=== PATIENT | male | born 1960 | race Caucasian/White ===

== ENCOUNTER 2017-05-17 12:54 | Emergency (ER) | payer MEDICAID ==
[~2017-05-17] VITALS: Ht 170.2 cm; Wt 106.8 kg
[2017-05-17] MEDS ORDERED: methylPREDNISolone sod succ 125mg/2ml vial IV ONE (13:05)
[2017-05-17] MEDS ORDERED: ipratropium/albuterol 3ml nebule NEB ONE ×2 (13:05→15:45)
[2017-05-17 13:22] LABS: BASOPHILS % (AUTO) 0.2 % (0-1); EOSINOPHILS # (AUTO) 0.1 X10'3 (0-0.9); EOSINOPHILS % (AUTO) 0.9 % (0-6); LYMPHOCYTES # (AUTO) 0.9 X10'3 (1.1-4.8); LYMPHOCYTES % (AUTO) 8.3 % (21-51); MEAN CORPUSCULAR HGB CONC 32.8 % (33.0-36.5); MEAN CORPUSCULAR VOLUME 91.5 FL (78-98); MEAN PLATELET VOLUME 7.5 FL (7.4-10.4); MONOCYTES # (AUTO) 0.3 X10'3 (0-0.9); MONOCYTES % (AUTO) 2.5 % (2-12); NEUTROPHILS # (AUTO) 9.9 X10'3 (1.8-7.7); NEUTROPHILS % (AUTO) 88.1 % (42-75); PLATELET COUNT 391 X10'3 (140-440); RED CELL DISTRIBUTION WIDTH 14.7 % (11.5-14.5); WHITE BLOOD COUNT 11.2 X10'3 (4.5-11.0)
[2017-05-17 13:27] LABS: HEMOGLOBIN 20.1 g/dl (14.0-17.9)
[2017-05-17 13:28] LABS: HEMATOCRIT 61.3 % (42.0-52.0)
[2017-05-17 13:44] LABS: ALANINE AMINOTRANSFERASE 65 U/L (12-78); ALBUMIN 3.6 G/DL (3.4-5.0); ALBUMIN/GLOBULIN RATIO 0.8 (1.1-1.5); ALKALINE PHOSPHATASE 55 IU/L (46-116); ANION GAP 7 (8-16); ASPARTATE AMINO TRANSFERASE 56 U/L (10-37); BILIRUBIN,TOTAL 0.9 MG/DL (0.1-1.0); BLOOD UREA NITROGEN 31 MG/DL (7-18); BUN/CREATININE RATIO 37.8 (5.4-32.0); CHLORIDE 100 MMOL/L (99-107); CREATININE 0.82 MG/DL (0.60-1.10); GLUCOSE 140 MG/DL (70-104); MAGNESIUM 1.7 MG/DL (1.5-2.4); POTASSIUM 4.2 MMOL/L (3.5-5.1); SODIUM 139 MMOL/L (135-145); TOTAL CARBON DIOXIDE 32.1 MMOL/L (24-32); TOTAL PROTEIN 7.9 G/DL (6.4-8.2); eGFR > 90 ML/MIN
[2017-05-17] MEDS ORDERED: iohexol 350MG/ML 100ml bottle IV ONE (14:17)
[2017-05-17 16:31] VITALS: BP 131/82
== END 2017-05-17 16:33 | disposition home or self-care (01) ==
LOC: ER 12:54
DX: J44.1 Chronic obstructive pulmonary disease with (acute) exacerbation (principal); D75.1 Secondary polycythemia; F17.200 Nicotine dependence, unspecified, uncomplicated; E11.9 Type 2 diabetes mellitus without complications
CPT/HCPCS: 36415; 71045; 71275; 80053; 83735; 83880; 84484; 85025; 93005; 94640; 94760; 96374; 99285; J2930; J7030; Q9967

== ENCOUNTER 2019-07-16 20:47 | Inpatient (IN) | payer MEDICAID ==
[~2019-07-16] VITALS: Ht 167.6 cm; Wt 100.0 kg
[2019-07-16] MEDS ORDERED: CefTRIAXone 2gm/D5W 50ml 50 ML IV ONE (20:55)
[2019-07-16] MEDS ORDERED: normal saline 1000ML IV soln IV ONE (20:55)
[2019-07-16 21:10] LABS: BASOPHILS % (AUTO) 0.3 % (0-1); EOSINOPHILS # (AUTO) 0.1 X10'3 (0-0.9); EOSINOPHILS % (AUTO) 0.7 % (0-6); HEMOGLOBIN 8.9 g/dl (14.0-17.9); LYMPHOCYTES # (AUTO) 1.4 X10'3 (1.1-4.8); LYMPHOCYTES % (AUTO) 10.3 % (21-51); MEAN CORPUSCULAR HEMOGLOBIN 29.7 PG (27.0-31.0); MEAN CORPUSCULAR HGB CONC 32.9 g/dL (33.0-36.5); MEAN CORPUSCULAR VOLUME 90.3 FL (78-98); MEAN PLATELET VOLUME 7.8 FL (7.4-10.4); MONOCYTES # (AUTO) 0.7 X10'3 (0-0.9); MONOCYTES % (AUTO) 5.5 % (2-12); NEUTROPHILS # (AUTO) 11.1 X10'3 (1.8-7.7); NEUTROPHILS % (AUTO) 83.2 % (42-75); PLATELET COUNT 355 X10'3 (140-440); RED BLOOD COUNT 2.98 X10'6 (4.70-6.10); RED CELL DISTRIBUTION WIDTH 14.3 % (11.5-14.5); WHITE BLOOD COUNT 13.4 X10'3 (4.5-11.0)
[2019-07-16 21:24] LABS: PARTIAL THROMBOPLASTIN TIME 28 SECONDS (22-32)
[2019-07-16 21:34] LABS: LACTIC SEPSIS 1.3 MMOL/L (0.4-2.0)
[2019-07-16 21:39] LABS: ALANINE AMINOTRANSFERASE 10 U/L (12-78); ALBUMIN 2.8 G/DL (3.4-5.0); ALBUMIN/GLOBULIN RATIO 1.1 (1.1-1.5); ALKALINE PHOSPHATASE 42 IU/L (46-116); ANION GAP 5 (8-16); ASPARTATE AMINO TRANSFERASE 11 U/L (10-37); BILIRUBIN,TOTAL 0.2 MG/DL (0.1-1.0); BLOOD UREA NITROGEN 119 MG/DL (7-18); BUN/CREATININE RATIO 13.8 (5.4-32.0); CALCIUM 7.2 MG/DL (8.5-10.1); CHLORIDE 102 MMOL/L (99-107); CREATININE 8.64 MG/DL (0.60-1.10); GLUCOSE 105 MG/DL (70-104); POTASSIUM 4.3 MMOL/L (3.5-5.1); SODIUM 142 MMOL/L (135-145); TOTAL CARBON DIOXIDE 35.5 MMOL/L (24-32); TOTAL PROTEIN 5.4 G/DL (6.4-8.2); eGFR 6 ML/MIN
[2019-07-16] MEDS ORDERED: normal saline 1000ML IV soln IVB ONE (21:45)
[2019-07-16 21:46] LABS: ETHANOL < 0.010 GM/DL (0.0-0.010); LIPASE 81 U/L (73-393); MAGNESIUM 1.7 MG/DL (1.5-2.4)
[2019-07-16] MEDS ORDERED: TRAM50TA2 PO (22:13)
[2019-07-16] MEDS ORDERED: CLON-529 PO (22:13)
[2019-07-16] MEDS ORDERED: LISI-600 PO (22:13)
[2019-07-16] MEDS ORDERED: BACL10TA2 PO (22:13)
[2019-07-16] MEDS ORDERED: FENO54TA PO (22:13)
[2019-07-16] MEDS ORDERED: METF-950 PO (22:13)
[2019-07-16] MEDS ORDERED: SIMV-42 PO (22:13)
[2019-07-16] MEDS ORDERED: GABA300C PO (22:13)
--- NOTE | 2019-07-16 22:13 | NUR ---
Spoke to pt's daughter Theresa [phone] as requested by pt and notified her of pt's admittance to the hospital. Med rec was also obtained from daughter.
[2019-07-16 22:15] LABS: CLARITY,URINE SLIGHTLY CLOUDY (Clear); COLOR,URINE YELLOW (Yellow); GLUCOSE, URINE NEGATIVE (Neg); KETONES,URINE TRACE mg/dl (Neg); LEUKOCYTE ESTERASE ,URINE NEGATIVE (Neg); NITRITES, URINE NEGATIVE (Neg); OCCULT BLOOD,URINE LARGE (Neg); PH,URINE 5.5 (4.8-8.0); PROTEIN,URINE 100 mg/dl (Neg); UROBILINOGEN,URINE 0.2 E.U/dL (0.2-1.0)
[2019-07-16 22:19] LABS: UA COLLECTION TYPE STRAIGHT CATH
[2019-07-16 22:20] LABS: BACTERIA,URINE FEW /HPF (Neg); MUCUS STRANDS FEW /LPF (Neg); RBC,URINE 20-50 /HPF (0-2); SQUAMOUS EPITHELIAL CELL,UR FEW /LPF (FEW); WBC,URINE 0-4 /HPF (0-4)
[2019-07-16 22:28] LABS: URINE AMPHETAMINE SCREEN NEGATIVE (Neg); URINE BARBITUATE SCREEN NEGATIVE (Neg); URINE BENZODIAZEPINES SCREEN NEGATIVE (Neg); URINE CANNABINOID SCREEN NEGATIVE (Neg); URINE COCAINE SCREEN NEGATIVE (Neg); URINE METHADONE SCREEN NEGATIVE (Neg); URINE OPIATE SCREEN NEGATIVE (Neg); URINE PHENCYCLIDINE SCREEN NEGATIVE (Neg)
[2019-07-16] MEDS ORDERED: baclofen 10mg tablet PO PRN (22:30)
[2019-07-16] MEDS ORDERED: normal saline 1000ml 1,000 ML IV SCH (22:31)
[2019-07-16] MEDS ORDERED: ipratropium/albuterol 3ml nebule NEB PRN (22:35)
[2019-07-16] MEDS ORDERED: magnesium 4gm in 100ml NS 100 ML IV PRN (22:35)
[2019-07-16] MEDS ORDERED: dextrose ORAL solution 15 GM/59 ML bottle PO PRN ×2 (22:35)
[2019-07-16] MEDS ORDERED: insulin Lispro (HumaLOG) vial - multi-dose SQ SCH (22:35)
[2019-07-16] MEDS ORDERED: acetaminophen 650mg rectal suppository RC PRN (22:35)
[2019-07-16] MEDS ORDERED: MESSAGE TO PHARMACY PO ONE (22:35)
[2019-07-16] MEDS ORDERED: potassium CL 10mEq/100ml bag 100 ML IV PRN ×2 (22:35)
[2019-07-16] MEDS ORDERED: glucagon, human recombinant 1mg kit SUBCUT PRN (22:35)
[2019-07-16] MEDS ORDERED: dextrose 50%-water 50ml dispensing syringe IV PRN ×2 (22:35)
[2019-07-16] MEDS ORDERED: potassium Cl 20 mEq SR tablet PO PRN ×2 (22:35)
[2019-07-16] MEDS ORDERED: magnesium 2GM in 50ml NS 50 ML IV PRN (22:35)
[2019-07-16] MEDS ORDERED: docusate sod 100mg capsule PO PRN (22:35)
[2019-07-17] VITALS (7 sets, daily range): BP systolic 80–110; BP diastolic 51–63
[2019-07-17] MEDS: pantoprazole 40MG/NS 100ML BAG 100 ML IV SCH ×5 (01:12→21:16)
[2019-07-17] MEDS: Melatonin 3mg tablet PO SCH ×2 (02:05→21:15)
--- NOTE | 2019-07-17 02:55 | NUR ---
Pt BP @ 80/41 - talked to Dr. Rios - drawing labs now to obtain Hgb and creatinine to determine patient need for blood vs fluid. Will continue to monitor. Pt is axo1-[address] Rios discussed w/ patient risks and benefits of blood transfusion.
[2019-07-17 03:44] LABS: HEMOGLOBIN A1C 6.7 % (4.5-6.2)
[2019-07-17 03:54] LABS: ALBUMIN 2.8 G/DL (3.4-5.0); ANION GAP 11 (8-16); BLOOD UREA NITROGEN 101 MG/DL (7-18); BUN/CREATININE RATIO 16.7 (5.4-32.0); CALCIUM 6.9 MG/DL (8.5-10.1); CHLORIDE 108 MMOL/L (99-107); CREATININE 6.05 MG/DL (0.60-1.10); GLUCOSE 89 MG/DL (70-104); MAGNESIUM 1.6 MG/DL (1.5-2.4); POTASSIUM 3.8 MMOL/L (3.5-5.1); SODIUM 146 MMOL/L (135-145); TOTAL CARBON DIOXIDE 27.5 MMOL/L (24-32); eGFR 10 ML/MIN
[2019-07-17 04:16] LABS: BASOPHILS % (AUTO) 0.4 % (0-1); EOSINOPHILS # (AUTO) 0.1 X10'3 (0-0.9); EOSINOPHILS % (AUTO) 0.6 % (0-6); HEMATOCRIT 23.7 % (42.0-52.0); HEMOGLOBIN 7.8 g/dl (14.0-17.9); LYMPHOCYTES # (AUTO) 1.4 X10'3 (1.1-4.8); LYMPHOCYTES % (AUTO) 12.8 % (21-51); MEAN CORPUSCULAR HEMOGLOBIN 29.8 PG (27.0-31.0); MEAN CORPUSCULAR HGB CONC 33.1 g/dL (33.0-36.5); MEAN CORPUSCULAR VOLUME 89.9 FL (78-98); MEAN PLATELET VOLUME 7.7 FL (7.4-10.4); MONOCYTES # (AUTO) 0.8 X10'3 (0-0.9); NEUTROPHILS # (AUTO) 8.7 X10'3 (1.8-7.7); NEUTROPHILS % (AUTO) 79.2 % (42-75); PLATELET COUNT 338 X10'3 (140-440); RED BLOOD COUNT 2.63 X10'6 (4.70-6.10); RED CELL DISTRIBUTION WIDTH 14.3 % (11.5-14.5)
[2019-07-17] MEDS: dextrose 5%-water 1,000 ML IV SCH ×5 (05:03→20:35)
[2019-07-17 06:19] LABS: OCCULT BLOOD STOOL POSITIVE (Neg)
--- NOTE | 2019-07-17 06:30 | NUR ---
Patient in room PCU 3014. I have received report from KAT LEON and had the opportunity to ask questions and assume patient care.
[2019-07-17] MEDS: diatr meglu/diatrizoate 30ml oral sol.-(3 dose) bottle PO SCH ×3 (07:11→14:01)
[2019-07-17] MEDS: K and/or MAG REPLACEMENT MC SCH ×2 (08:00→18:51)
[2019-07-17] MEDS: nicotine 14mg patch - 24hr TD SCH (08:34)
[2019-07-17 10:52] LABS: CLARITY,URINE CLEAR (Clear); COLOR,URINE YELLOW (Yellow); GLUCOSE, URINE 250 mg/dl (Neg); KETONES,URINE NEGATIVE (Neg); LEUKOCYTE ESTERASE ,URINE NEGATIVE (Neg); NITRITES, URINE NEGATIVE (Neg); OCCULT BLOOD,URINE TRACE-LYSED (Neg); PROTEIN,URINE NEGATIVE (Neg); UROBILINOGEN,URINE 0.2 E.U/dL (0.2-1.0)
[2019-07-17 10:55] LABS: TOTAL PROTEIN,URINE RANDOM 20.1 MG/DL
--- NOTE | 2019-07-17 10:59 | NUR ---
CALL FROM RAINE APONTE, SAYS "GIVE SECOND DOSE OF GASTROVIEW NOW, THIRD DOSE FINANCIAL ADMINISTRATIVE ASSISTANT".
[2019-07-17 11:14] LABS: UA COLLECTION TYPE FOLEY CATH
[2019-07-17 11:18] LABS: BACTERIA,URINE NONE SEEN /HPF (Neg); RBC,URINE 0-2 /HPF (0-2); SQUAMOUS EPITHELIAL CELL,UR NONE SEEN /LPF (FEW); WBC,URINE 0-4 /HPF (0-4)
[2019-07-17 11:37] LABS: UA EOSINOPHILS NO EOS /HPF
[2019-07-17 12:34] LABS: ALANINE AMINOTRANSFERASE 7 U/L (12-78); ALBUMIN 2.7 G/DL (3.4-5.0); ALKALINE PHOSPHATASE 41 IU/L (46-116); ANION GAP 8 (8-16); ASPARTATE AMINO TRANSFERASE 12 U/L (10-37); BILIRUBIN,TOTAL 0.1 MG/DL (0.1-1.0); BLOOD UREA NITROGEN 69 MG/DL (7-18); BUN/CREATININE RATIO 18.3 (5.4-32.0); CALCIUM 7.4 MG/DL (8.5-10.1); CHLORIDE 110 MMOL/L (99-107); CREATININE 3.77 MG/DL (0.60-1.10); GLUCOSE 161 MG/DL (70-104); POTASSIUM 3.9 MMOL/L (3.5-5.1); SODIUM 148 MMOL/L (135-145); TOTAL CARBON DIOXIDE 30.5 MMOL/L (24-32); TOTAL PROTEIN 5.3 G/DL (6.4-8.2); eGFR 17 ML/MIN
--- NOTE | 2019-07-17 17:37 | NUR ---
PAGER ID: [phone] MESSAGE: DR. POWERS, 3849W/YIFAN [place] REPORT WAS HE HAD DECKER CATH PER PROTOCOL TO MONITOR CRITICALLY ILL PT. I DO NOT FIND ANY ORDERS. WAS INSERTED LAST NOC @2200. PLEASE ADDRESS. MIRIAM PINEDA [id number].
--- NOTE | 2019-07-17 18:33 | NUR ---
Problems reprioritized. Patient report given, questions answered & plan of care reviewed with KAT CAT.
--- NOTE | 2019-07-17 18:43 | NUR ---
Patient in room PCU 3014. I have received report from Charanjit STEPHENS and had the opportunity to ask questions and assume patient care.
[2019-07-17] MEDS: insulin glargine (Lantus) pen - multi-dose SQ SCH (21:00)
--- NOTE | 2019-07-17 21:54 | NUR ---
Unable to DART pt, pt is a poor historian and confused.
[2019-07-18] VITALS (21 sets, daily range): BP systolic 79–113; BP diastolic 46–80
[2019-07-18] MEDS: dextrose 5%-water 1,000 ML IV SCH ×3 (00:35→08:29)
[2019-07-18] MEDS: pantoprazole 40MG/NS 100ML BAG 100 ML IV SCH ×5 (02:02→19:59)
[2019-07-18 05:21] LABS: BASOPHILS # (AUTO) 0.1 X10'3 (0-0.2); BASOPHILS % (AUTO) 0.5 % (0-1); EOSINOPHILS # (AUTO) 0.2 X10'3 (0-0.9); EOSINOPHILS % (AUTO) 1.6 % (0-6); LYMPHOCYTES # (AUTO) 2.4 X10'3 (1.1-4.8); LYMPHOCYTES % (AUTO) 20.7 % (21-51); MEAN CORPUSCULAR HEMOGLOBIN 29.3 PG (27.0-31.0); MEAN CORPUSCULAR HGB CONC 32.1 g/dL (33.0-36.5); MEAN CORPUSCULAR VOLUME 91.1 FL (78-98); MEAN PLATELET VOLUME 8.2 FL (7.4-10.4); MONOCYTES # (AUTO) 0.8 X10'3 (0-0.9); NEUTROPHILS % (AUTO) 70.2 % (42-75); PLATELET COUNT 429 X10'3 (140-440); RED BLOOD COUNT 3.08 X10'6 (4.70-6.10); RED CELL DISTRIBUTION WIDTH 14.3 % (11.5-14.5); WHITE BLOOD COUNT 11.4 X10'3 (4.5-11.0)
[2019-07-18 05:38] LABS: ALANINE AMINOTRANSFERASE 6 U/L (12-78); ALBUMIN 2.9 G/DL (3.4-5.0); ALKALINE PHOSPHATASE 42 IU/L (46-116); ANION GAP 5 (8-16); ASPARTATE AMINO TRANSFERASE 14 U/L (10-37); BILIRUBIN,TOTAL 0.2 MG/DL (0.1-1.0); BLOOD UREA NITROGEN 36 MG/DL (7-18); BUN/CREATININE RATIO 19.7 (5.4-32.0); CALCIUM 8.7 MG/DL (8.5-10.1); CHLORIDE 108 MMOL/L (99-107); CREATININE 1.83 MG/DL (0.60-1.10); GLUCOSE 133 MG/DL (70-104); MAGNESIUM 1.4 MG/DL (1.5-2.4); POTASSIUM 3.6 MMOL/L (3.5-5.1); SODIUM 146 MMOL/L (135-145); TOTAL CARBON DIOXIDE 33.1 MMOL/L (24-32); TOTAL PROTEIN 5.8 G/DL (6.4-8.2); eGFR 38 ML/MIN
--- NOTE | 2019-07-18 06:18 | NUR ---
Problems reprioritized. Patient report given, questions answered & plan of care reviewed with Sheri STEPHENS.
--- NOTE | 2019-07-18 07:19 | NUR ---
Patient in room PCU 3014. I have received report from [place] STEPHENS and had the opportunity to ask questions and assume patient care.
[2019-07-18] MEDS: K and/or MAG REPLACEMENT MC SCH ×2 (08:00→18:41)
[2019-07-18] MEDS: nicotine 14mg patch - 24hr TD SCH (08:44)
[2019-07-18] MEDS: ondansetron/PF 4mg/2ml inj IV PRN ×2 (10:21→20:08)
--- NOTE | 2019-07-18 10:50 | NUR ---
Patient ready for MRI. Patient VSS, transportation with wheel chair to transport to MRI.
--- NOTE | 2019-07-18 11:10 | NUR ---
Patient returned from MRI. Patient was able to attain MRI due to vomiting emesis of bright red vomit. Patient back in bed, tele on, IV fluids running. Vital signs were taken. MD notified. Will continue to monitor.
[2019-07-18 11:11] LABS: HEMATOCRIT 25.4 % (42.0-52.0); HEMOGLOBIN 8.2 g/dl (14.0-17.9); MEAN CORPUSCULAR HEMOGLOBIN 29.6 PG (27.0-31.0); MEAN CORPUSCULAR HGB CONC 32.4 g/dL (33.0-36.5); MEAN CORPUSCULAR VOLUME 91.6 FL (78-98); MEAN PLATELET VOLUME 7.7 FL (7.4-10.4); PLATELET COUNT 426 X10'3 (140-440); RED BLOOD COUNT 2.77 X10'6 (4.70-6.10); RED CELL DISTRIBUTION WIDTH 14.6 % (11.5-14.5); WHITE BLOOD COUNT 11.8 X10'3 (4.5-11.0)
--- NOTE | 2019-07-18 11:11 | NUR ---
PAGER ID: [phone] MESSAGE: DR. POWERS, [id number]/C[place], MRI BRINGING HIM BACK, DID NOT DO R/T VOMITING NAA RED BLOOD. MIRIAM [id number].
--- NOTE | 2019-07-18 11:13 | NUR ---
PAGER ID: [phone] MESSAGE: DR. JONES....., [id number]/NADYA, TOO UTILITY DIVISION PROJECT MANAGER, APPROX 100ML BLOOD.
--- NOTE | 2019-07-18 11:25 | NUR ---
Paged Dr. Martínez: PAGER ID: [phone] MESSAGE: RE: Delonte Meyer [id number]. VS: 02 99% on 3L, HR 117, BP 87/46. Sheri [phone]
[2019-07-18] MEDS ORDERED: normal saline 1000ml 1,000 ML IVB ONE (11:35)
[2019-07-18] MEDS ORDERED: normal saline 1000ml 1,000 ML IV ONE ×2 (11:40→16:25)
--- NOTE | 2019-07-18 12:30 | NUR ---
Patient transferred to ICU unit for MD orders. Vital signs are stable and being monitored. Patient transferred via gurney, with IV fluids running. Tele removed and patients belongings gathered and sent with patient. [facility] ICU charge nurse was called and given report in SBAR form.
--- NOTE | 2019-07-18 13:14 | NUR ---
Patient in room ICU 2038. I have received report from Mable/Agnieszka Ibarra and had the opportunity to ask questions and assume patient care.
[2019-07-18] MEDS ORDERED: fentaNYL/PF 50MCG/1 ML 2ML syringe ONE (13:51)
[2019-07-18] MEDS ORDERED: LIDOcaine Viscous 15ml cup ONE (13:51)
[2019-07-18] MEDS ORDERED: MIDAZolam 5mg/5ml vial ONE (13:51)
[2019-07-18] MEDS ORDERED: epiNEPHrine 0.1mg/ml 10ml syringe ONE (13:56)
[2019-07-18] MEDS: normal saline 1000ml 1,000 ML IV SCH ×3 (13:57→22:59)
--- NOTE | 2019-07-18 14:09 | NUR ---
[place] documentation: I have reviewed and agree with all interventions, assessments performed and documented by KAT Messina. [place] Medication Administration: For this medication-pass time frame, all medication were reviewed, dispensed, administered and documented per hospital policy by KAT Messina.
--- NOTE | 2019-07-18 14:19 | NUR ---
Dr. Rebolledo here to perform scope.
--- NOTE | 2019-07-18 14:23 | NUR ---
RN called pt's mom Angelica to obtain consent for EGD.
[2019-07-18] MEDS: OCTREOTIDE IV SCH (15:14)
[2019-07-18] MEDS: NS IV SCH (15:14)
[2019-07-18] MEDS ORDERED: octreotide inj. 1,250 MCG in normal saline 250ml IV soln 243.75 ML IV SCH (15:15)
[2019-07-18 16:19] LABS: MEAN CORPUSCULAR HEMOGLOBIN 30.2 PG (27.0-31.0); MEAN CORPUSCULAR HGB CONC 32.8 g/dL (33.0-36.5); MEAN PLATELET VOLUME 7.6 FL (7.4-10.4); PLATELET COUNT 353 X10'3 (140-440); RED BLOOD COUNT 2.19 X10'6 (4.70-6.10); RED CELL DISTRIBUTION WIDTH 14.8 % (11.5-14.5); WHITE BLOOD COUNT 11.9 X10'3 (4.5-11.0)
[2019-07-18 16:28] LABS: HEMOGLOBIN 6.6 g/dl (14.0-17.9)
[2019-07-18 16:29] LABS: HEMATOCRIT 20.1 % (42.0-52.0)
--- NOTE | 2019-07-18 16:59 | NUR ---
1 unit PRBC infusing. See new orders.
[2019-07-18] MEDS: insulin glargine (Lantus) pen - multi-dose SQ SCH (21:00)
[2019-07-18] MEDS: Melatonin 3mg tablet PO SCH (21:00)
[2019-07-18 21:55] LABS: MEAN CORPUSCULAR HEMOGLOBIN 30.2 PG (27.0-31.0); MEAN CORPUSCULAR HGB CONC 33.2 g/dL (33.0-36.5); MEAN CORPUSCULAR VOLUME 90.8 FL (78-98); MEAN PLATELET VOLUME 7.8 FL (7.4-10.4); PLATELET COUNT 320 X10'3 (140-440); RED BLOOD COUNT 2.31 X10'6 (4.70-6.10); RED CELL DISTRIBUTION WIDTH 14.8 % (11.5-14.5); WHITE BLOOD COUNT 11.6 X10'3 (4.5-11.0)
[2019-07-18] MEDS: diphenhydrAMINE 50 mg/ml inj IV PRN (22:59)
[2019-07-19] VITALS (30 sets, daily range): BP systolic 108–160; BP diastolic 52–87
[2019-07-19 00:20] LABS: MEAN CORPUSCULAR HEMOGLOBIN 29.8 PG (27.0-31.0); MEAN CORPUSCULAR HGB CONC 32.7 g/dL (33.0-36.5); MEAN CORPUSCULAR VOLUME 91.1 FL (78-98); MEAN PLATELET VOLUME 7.8 FL (7.4-10.4); PLATELET COUNT 319 X10'3 (140-440); RED BLOOD COUNT 2.24 X10'6 (4.70-6.10); RED CELL DISTRIBUTION WIDTH 14.9 % (11.5-14.5); WHITE BLOOD COUNT 11.4 X10'3 (4.5-11.0)
[2019-07-19] MEDS: OCTREOTIDE IV SCH ×2 (00:25→12:55)
[2019-07-19] MEDS: NS IV SCH ×2 (00:25→12:55)
[2019-07-19] MEDS: pantoprazole 40MG/NS 100ML BAG 100 ML IV SCH ×5 (00:25→21:21)
[2019-07-19 00:30] LABS: HEMATOCRIT 20.4 % (42.0-52.0); HEMOGLOBIN 6.7 g/dl (14.0-17.9)
--- NOTE | 2019-07-19 00:33 | NUR ---
CRITICAL HGB 6.7, HCT 20.4. NOTIFIED MARCH STEPHEN RAJPUT. NEW ORDERS RECEIVED TO TRANSFUSE 1 UNIT PRBC.
[2019-07-19 05:55] LABS: BASOPHILS # (AUTO) 0.1 X10'3 (0-0.2); BASOPHILS % (AUTO) 0.6 % (0-1); EOSINOPHILS # (AUTO) 0.2 X10'3 (0-0.9); EOSINOPHILS % (AUTO) 1.9 % (0-6); HEMATOCRIT 23.4 % (42.0-52.0); HEMOGLOBIN 7.6 g/dl (14.0-17.9); LYMPHOCYTES # (AUTO) 2.4 X10'3 (1.1-4.8); LYMPHOCYTES % (AUTO) 21.4 % (21-51); MEAN CORPUSCULAR HEMOGLOBIN 29.2 PG (27.0-31.0); MEAN CORPUSCULAR HGB CONC 32.4 g/dL (33.0-36.5); MEAN CORPUSCULAR VOLUME 90.3 FL (78-98); MEAN PLATELET VOLUME 8.1 FL (7.4-10.4); MONOCYTES % (AUTO) 9.1 % (2-12); NEUTROPHILS # (AUTO) 7.4 X10'3 (1.8-7.7); PLATELET COUNT 316 X10'3 (140-440); RED BLOOD COUNT 2.59 X10'6 (4.70-6.10); RED CELL DISTRIBUTION WIDTH 15.1 % (11.5-14.5)
[2019-07-19 06:11] LABS: ALANINE AMINOTRANSFERASE 9 U/L (12-78); ALBUMIN 2.4 G/DL (3.4-5.0); ALKALINE PHOSPHATASE 32 IU/L (46-116); ANION GAP 2 (8-16); ASPARTATE AMINO TRANSFERASE 14 U/L (10-37); BILIRUBIN,TOTAL 0.5 MG/DL (0.1-1.0); BLOOD UREA NITROGEN 27 MG/DL (7-18); BUN/CREATININE RATIO 18.8 (5.4-32.0); CALCIUM 7.2 MG/DL (8.5-10.1); CHLORIDE 113 MMOL/L (99-107); CREATININE 1.44 MG/DL (0.60-1.10); GLUCOSE 97 MG/DL (70-104); POTASSIUM 4.3 MMOL/L (3.5-5.1); SODIUM 145 MMOL/L (135-145); TOTAL CARBON DIOXIDE 29.8 MMOL/L (24-32); TOTAL PROTEIN 4.7 G/DL (6.4-8.2); eGFR 51 ML/MIN
[2019-07-19 06:13] LABS: MAGNESIUM 0.9 MG/DL (1.5-2.4)
--- NOTE | 2019-07-19 06:15 | NUR ---
Patient in room ICU 2038. I have received report from Krissy STEPHENS and had the opportunity to ask questions and assume patient care.
--- NOTE | 2019-07-19 06:39 | NUR ---
Kali Montero called re. Mag 0.9. Stated Dr. Fitzpatrick is particular re. replacing Mg on patients. Stated to replace pt. with Slow Mag once he is eating. Pt. is currently NPO. Kali Montero stated she will enter order.
--- NOTE | 2019-07-19 06:53 | NUR ---
Patient in room ICU 2038. I have received report from Krissy STEPHENS and had the opportunity to ask questions and assume patient care. Addendum: 07/19/19 at 0653 by Sydnee Malik RN Amended: Links added.
[2019-07-19] MEDS: normal saline 1000ml 1,000 ML IV SCH ×3 (07:40→21:28)
[2019-07-19] MEDS: nicotine 14mg patch - 24hr TD SCH (07:41)
[2019-07-19] MEDS: K and/or MAG REPLACEMENT MC SCH ×2 (07:42→20:00)
--- NOTE | 2019-07-19 10:38 | NUR ---
Dr. Fitzpatrick cancelled MRI. Aware of Mag 0.9 and that pt. is having EGD again today.
[2019-07-19 10:46] LABS: HEMOGLOBIN 7.6 g/dl (14.0-17.9); MEAN CORPUSCULAR HEMOGLOBIN 29.4 PG (27.0-31.0); MEAN CORPUSCULAR HGB CONC 33.1 g/dL (33.0-36.5); MEAN CORPUSCULAR VOLUME 89.1 FL (78-98); MEAN PLATELET VOLUME 7.6 FL (7.4-10.4); PLATELET COUNT 319 X10'3 (140-440); RED BLOOD COUNT 2.59 X10'6 (4.70-6.10); RED CELL DISTRIBUTION WIDTH 14.9 % (11.5-14.5); WHITE BLOOD COUNT 10.1 X10'3 (4.5-11.0)
--- NOTE | 2019-07-19 11:12 | NUR ---
Dr. Fitzpatrick in to see pt.
--- NOTE | 2019-07-19 13:18 | NUR ---
Pt. wants to leave AMA. Pt. called his 84-year old mother to come pick him up. RN spoke with pt's mother and told her if she doesn't want pt. to leave to not to come pick him up.
--- NOTE | 2019-07-19 14:00 | NUR ---
Pt agitated, states he "wants to go home but no one can come pick me up". Assisted pt to sit on edge of bed and to look out the window and deep breath, he relaxed and decided to call his daughter and apologize for "snapping at her" on the phone earlier. Patient back to bed and willing to have his EGD, then he "wants to go home after that." Will continue to monitor.
[2019-07-19] MEDS ORDERED: fentaNYL/PF 50MCG/1 ML 2ML syringe ONE (14:17)
[2019-07-19] MEDS ORDERED: MIDAZolam 5mg/5ml vial ONE (14:17)
[2019-07-19] MEDS ORDERED: epiNEPHrine 0.1mg/ml 10ml syringe ONE ×2 (14:18→16:36)
[2019-07-19] MEDS ORDERED: LIDOcaine Viscous 15ml cup ONE (14:18)
--- NOTE | 2019-07-19 14:38 | NUR ---
GI team in room, starting procedure.
[2019-07-19] MEDS: magnesium Cl slow-release 64mg tablet PO PRN ×2 (16:14→21:22)
[2019-07-19 16:42] LABS: HEMATOCRIT 23.8 % (42.0-52.0); HEMOGLOBIN 7.9 g/dl (14.0-17.9); MEAN CORPUSCULAR HGB CONC 33.3 g/dL (33.0-36.5); MEAN PLATELET VOLUME 7.7 FL (7.4-10.4); PLATELET COUNT 337 X10'3 (140-440); RED BLOOD COUNT 2.64 X10'6 (4.70-6.10); RED CELL DISTRIBUTION WIDTH 14.9 % (11.5-14.5); WHITE BLOOD COUNT 12.9 X10'3 (4.5-11.0)
--- NOTE | 2019-07-19 18:07 | NUR ---
Problems reprioritized. Patient report given, questions answered & plan of care reviewed with Leana STEPHENS.
--- NOTE | 2019-07-19 18:10 | NUR ---
Patient in room ICU 2038. I have received report from Leeann RN and KAT Randhawa and had the opportunity to ask questions and assume patient care.
--- NOTE | 2019-07-19 18:10 | NUR ---
Patient in room ICU 2038. I have received report from KAT Contreras and had the opportunity to ask questions and assume patient care. Patient is resting comfortable in hospital bed, has EGD today and gastric ulcer was "clipped". I will continue to monitor with kit Block RN.
[2019-07-19] MEDS: insulin glargine (Lantus) pen - multi-dose SQ SCH (21:00)
[2019-07-19] MEDS: Melatonin 3mg tablet PO SCH (21:21)
[2019-07-19] MEDS: diphenhydrAMINE 50 mg/ml inj IV PRN (22:05)
[2019-07-19 22:38] LABS: HEMATOCRIT 22.7 % (42.0-52.0); HEMOGLOBIN 7.4 g/dl (14.0-17.9); MEAN CORPUSCULAR HEMOGLOBIN 29.2 PG (27.0-31.0); MEAN CORPUSCULAR HGB CONC 32.5 g/dL (33.0-36.5); MEAN PLATELET VOLUME 7.7 FL (7.4-10.4); PLATELET COUNT 342 X10'3 (140-440); RED BLOOD COUNT 2.52 X10'6 (4.70-6.10); RED CELL DISTRIBUTION WIDTH 15.6 % (11.5-14.5); WHITE BLOOD COUNT 11.9 X10'3 (4.5-11.0)
[2019-07-20] VITALS (15 sets, daily range): BP systolic 108–140; BP diastolic 51–90
[2019-07-20] MEDS: pantoprazole 40MG/NS 100ML BAG 100 ML IV SCH ×2 (02:31→07:57)
[2019-07-20] MEDS: normal saline 1000ml 1,000 ML IV SCH (04:09)
--- NOTE | 2019-07-20 04:18 | NUR ---
Patient awakened from sleep and stated, "I remember everything now. I know why I'm in the hospital. I was throwing up a lot before I came in. It must of taken a good night's rest for me to remember." Improved mentation observed.
[2019-07-20 04:57] LABS: BASOPHILS % (AUTO) 0.4 % (0-1); EOSINOPHILS # (AUTO) 0.4 X10'3 (0-0.9); EOSINOPHILS % (AUTO) 3.2 % (0-6); LYMPHOCYTES # (AUTO) 2.1 X10'3 (1.1-4.8); LYMPHOCYTES % (AUTO) 18.5 % (21-51); MEAN CORPUSCULAR HGB CONC 32.3 g/dL (33.0-36.5); MEAN CORPUSCULAR VOLUME 89.8 FL (78-98); MEAN PLATELET VOLUME 7.8 FL (7.4-10.4); MONOCYTES # (AUTO) 0.9 X10'3 (0-0.9); MONOCYTES % (AUTO) 8.1 % (2-12); NEUTROPHILS # (AUTO) 7.8 X10'3 (1.8-7.7); NEUTROPHILS % (AUTO) 69.8 % (42-75); PLATELET COUNT 327 X10'3 (140-440); RED BLOOD COUNT 2.41 X10'6 (4.70-6.10); WHITE BLOOD COUNT 11.2 X10'3 (4.5-11.0)
[2019-07-20 05:03] LABS: HEMATOCRIT 21.7 % (42.0-52.0)
--- NOTE | 2019-07-20 05:10 | NUR ---
INVESTIGATOR UTILITY BILL COMPLAINTS March notified of critical HH lab results of 0.7 Hgb and 21.7 Hct. INVESTIGATOR UTILITY BILL COMPLAINTS ordered repeat hemogram testing in Q6HR unless patient proves to be symptomatic with an active bleed. Patient is resting without any assessed active bleeding. Will continue to closely monitor.
[2019-07-20 05:15] LABS: ALANINE AMINOTRANSFERASE 7 U/L (12-78); ALBUMIN 2.2 G/DL (3.4-5.0); ALKALINE PHOSPHATASE 31 IU/L (46-116); ANION GAP 5 (8-16); ASPARTATE AMINO TRANSFERASE 14 U/L (10-37); BILIRUBIN,TOTAL 0.2 MG/DL (0.1-1.0); BLOOD UREA NITROGEN 20 MG/DL (7-18); BUN/CREATININE RATIO 17.1 (5.4-32.0); CALCIUM 6.7 MG/DL (8.5-10.1); CHLORIDE 112 MMOL/L (99-107); CREATININE 1.17 MG/DL (0.60-1.10); GLUCOSE 80 MG/DL (70-104); POTASSIUM 3.6 MMOL/L (3.5-5.1); SODIUM 146 MMOL/L (135-145); TOTAL PROTEIN 4.5 G/DL (6.4-8.2); eGFR 64 ML/MIN
[2019-07-20 05:17] LABS: MAGNESIUM 0.9 MG/DL (1.5-2.4)
--- NOTE | 2019-07-20 06:26 | NUR ---
Problems reprioritized. Patient report given, questions answered & plan of care reviewed with KAT Menjivar.
--- NOTE | 2019-07-20 06:26 | NUR ---
Patient in room ICU 2038. I have received report from RN and had the opportunity to ask questions and assume patient care.
[2019-07-20] MEDS: nicotine 14mg patch - 24hr TD SCH (07:59)
[2019-07-20] MEDS: K and/or MAG REPLACEMENT MC SCH (08:00)
--- NOTE | 2019-07-20 08:00 | NUR ---
Vitals WNL. PT A/O. Cooperative, denies pain, on room air, up to commode - small bm x 1 black tarry. Clear liquids for breakfast. PT states not hungry. 25 grams CHO intake. CBG 85.
[2019-07-20] MEDS: magnesium Cl slow-release 64mg tablet PO PRN (09:22)
[2019-07-20 09:25] LABS: HEMOGLOBIN 7.2 g/dl (14.0-17.9); MEAN CORPUSCULAR HEMOGLOBIN 29.3 PG (27.0-31.0); MEAN CORPUSCULAR HGB CONC 32.6 g/dL (33.0-36.5); MEAN CORPUSCULAR VOLUME 90.1 FL (78-98); MEAN PLATELET VOLUME 7.4 FL (7.4-10.4); PLATELET COUNT 340 X10'3 (140-440); RED BLOOD COUNT 2.44 X10'6 (4.70-6.10); RED CELL DISTRIBUTION WIDTH 15.1 % (11.5-14.5); WHITE BLOOD COUNT 12.2 X10'3 (4.5-11.0)
[2019-07-20] MEDS ORDERED: pantoprazole 40mg Tablet.DR PO SCH (09:40)
[2019-07-20 10:20] LABS: H PYLORI ANTIBODY NEGATIVE (Neg)
--- NOTE | 2019-07-20 10:55 | NUR ---
Initial: Pt admit w/ UGIB s/p EGD showing deep ulcer no current active bleed per MD. Currently on clear liquids PO 50-75% avg first 2 meals not meeting needs on restrictive diet. Mg 0.9 today receiving replacement. LBM 07/19. Will monitor for PO diet advancement, tolerance, and additional protein needs this admit. Rec: 1. advance diet as medically indicated to carb controlled 2. monitor for ONS needs; consider ensure clears if prolonged clear liquids 3. bowel care as needed 4. wt per rx Addendum: 07/20/19 at [address] Amended: Links added.
--- NOTE | 2019-07-20 11:51 | NUR ---
Problems reprioritized. Patient report given, questions answered & plan of care reviewed with Katarina.CL removed, no bleeding noted. FC removed. PT transfered to 3016A.
--- NOTE | 2019-07-20 16:27 | NUR ---
Notified PAGER ID: [phone] MESSAGE: [id number] Delonte Meyer. Patient would like to leave AMA. Thank you. KAT Tracy ext [phone]
--- NOTE | 2019-07-20 16:50 | NUR ---
Patient left AMA. Patient educated on importance of staying until stable for discharge. MD notified. PIV Dced, tip intact, dressing CDI. wrist bands removed. all known belongings taken with patient. Patient wheeled to Lobby for ride.
== END 2019-07-20 16:55 | disposition left against medical advice (07) | DRG 241 ==
LOC: ER 20:47 → ED HOLD 22:31 → PCU 3S 07-17 00:05 → ICU 2S 07-18 12:30 → PCU 3S 07-20 11:40
PROVIDERS: ADMIT Family Medicine; ATTEND Family Medicine
PROC: 02HV33Z Insertion of Infusion Device into Superior Vena Cava, Percutaneous Approach (ICD-10-PCS; principal; 2019-07-18)
PROC: 0DJ08ZZ Inspection of Upper Intestinal Tract, Via Natural or Artificial Opening Endoscopic (ICD-10-PCS; 2019-07-18)
PROC: 30233N1 Transfusion of Nonautologous Red Blood Cells into Peripheral Vein, Percutaneous Approach (ICD-10-PCS; 2019-07-18)
PROC: 0DJ08ZZ Inspection of Upper Intestinal Tract, Via Natural or Artificial Opening Endoscopic (ICD-10-PCS; 2019-07-19)
DX: K25.4 Chronic or unspecified gastric ulcer with hemorrhage (principal); R57.1 Hypovolemic shock; N17.0 Acute kidney failure with tubular necrosis; G93.41 Metabolic encephalopathy; E27.8 Other specified disorders of adrenal gland; D50.0 Iron deficiency anemia secondary to blood loss (chronic); E11.9 Type 2 diabetes mellitus without complications; F17.200 Nicotine dependence, unspecified, uncomplicated; D64.9 Anemia, unspecified; I10 Essential (primary) hypertension; J44.9 Chronic obstructive pulmonary disease, unspecified; K40.90 Unilateral inguinal hernia, without obstruction or gangrene, not specified as recurrent; E87.0 Hyperosmolality and hypernatremia; I25.10 Atherosclerotic heart disease of native coronary artery without angina pectoris; Z71.6 Tobacco abuse counseling; E78.00 Pure hypercholesterolemia, unspecified; E78.5 Hyperlipidemia, unspecified; Z82.49 Family history of ischemic heart disease and other diseases of the circulatory system
CPT/HCPCS: 36415; 36430; 43235; 43243; 70450; 71045; 74176; 80048; 80053; 80305; 80320; 81001; 82140; 82272; 82570; 82607; 82948; 83036; 83605; 83690; 83735; 83880; 84145; 84156; 84300; 84443; 84484; 85025; 85027; 85610; 85730; 86677; 86885; 86900; 86901; 86920; 87040; 87081; 87207; 93005; 94640; 94667; 94668; 94760; 97116; 97161; 97530; 97535; 99152; 99153; 99291; C9113; G0378; J0171; J0696; J1200; J1815; J2250; J2354; J2405; J3010; J7030; J7070; P9016; Q9963